=== PATIENT | female | born 1950 | race Caucasian/White ===

== ENCOUNTER 2025-01-15 11:54 | Outpatient (RCR) | payer MEDICARE, BC, SELFPAY ==
[2025-01-15 13:18] LABS: Creatinine* 0.8 mg/dL (0.5-1.5); Est. Creatinine Clearance* 41.33; Estimated Glomerular Filt Rate 76 ml/min
[2025-01-15] MEDS: SODIUM CHLORIDE 0.9 % (FLUSH) 10 ML SYRINGE IVF (13:27)
== END 2025-07-14 23:59 | disposition home or self-care (01) ==
LOC: CCIC 11:54
PROVIDERS: Physician Assistant; Visit Provider Internal Medicine Hematology & Oncology
DX: C25.2 Malignant neoplasm of tail of pancreas (principal)
CPT/HCPCS: 36415; 36591; 82565